=== PATIENT | female | born 1990 | race Caucasian/White ===

== ENCOUNTER → 2020-05-31 | Outpatient (CLI) | payer BC, OTHER ==
[~2020-05-31] MED LIST: ACCUNEB SO1.25 MG/1; FOLIC ACID1 MG PO; IBUPROFEN 600600 M1 PO; IRON325 PO; TRINATE TABLET1 TAB PO
== END ==
LOC: LAB 08:00
PROVIDERS: ATTEND Nurse Practitioner
DX: R53.83 Other fatigue (principal); J02.9 Acute pharyngitis, unspecified; R68.83 Chills (without fever); Z20.828 Contact with and (suspected) exposure to other viral communicable diseases